=== PATIENT | female | born 1945 | race Caucasian/White ===

== ENCOUNTER 2016-11-19 09:48 | Emergency (ER) | payer OTHER ==
--- NOTE | ~2016-11-19 | CR126 ---
[facility] A Service of [facility] & [facility] RADIOLOGY TEXT RESULTS PATIENT: MYRTLE COOMBS LOCATION: [place] : 45 UNIT #: [id number] AGE: [address]: David Hudson SEX: F ORDER DR: [id number] [facility] [address]. [place], [place] [address] [id number] E MR#: [id number] Acc #: [id number] NAME: MYRTLE COOMBS : 1945 SEX: F STUDY DATE/TIME: 11/19/2016 11:19 UNIT: [facility] ROOM: STUDY DESCRIPTION: CR Foot Complete Min 3 View Lt Attending Physician: David Hudson Ordering Physician: David Hudson Primary Care Physician: Ashley Bae M.D. MEDICAL IMAGING REPORT This report is preliminary unless electronic signature is present EXAM Left foot. HISTORY Patient fell 1 week ago with pain and swelling. TECHNIQUE 3 views of the foot were obtained. FINDINGS. Extensive erosive degenerative change is seen at the first MTP joint with moderate degenerative changes at the interphalangeal joints. There is no evidence of an acute fracture and no radiodense foreign bodies are seen. No active cortical bone destruction is noted. IMPRESSION No acute findings. Chronic changes at the first MTP joint and to a lesser extent at the interphalangeal joints of the toes. Dictated by... Dominick Adan M.D. THIS IS AN ELECTRONICALLY VERIFIED REPORT Dominick Adan M.D. at 11/23/2016 6:27 PM SUNDAY/cathy TD: 11/19/2016 12:42 JOB #: [id number] MEDICAL IMAGING REPORT Page 1 of 1 COPY
--- NOTE | ~2016-11-19 | CR230 ---
[facility] A Service of [facility] & [facility] RADIOLOGY TEXT RESULTS PATIENT: MYRTLE COOMBS LOCATION: [facility] : 45 UNIT #: [id number] AGE: [address]: David Hudson SEX: F ORDER DR: [id number] [facility] [address]. [place], [place] [address] [id number] E MR#: [id number] Acc #: [id number] NAME: MYRTLE COOMBS : 1945 SEX: F STUDY DATE/TIME: 11/19/2016 11:16 UNIT: [facility] ROOM: STUDY DESCRIPTION: CR Shoulder Min 2 View Rt Attending Physician: David Hudson Ordering Physician: David Hudson Primary Care Physician: Ashley Bae M.D. MEDICAL IMAGING REPORT This report is preliminary unless electronic signature is present EXAM Right shoulder, 11/19/2016. HISTORY 71-year-old female with right shoulder pain status post fall 1 week ago. COMPARISON None FINDINGS 3 views of the right shoulder demonstrate bony demineralization. No evidence of acute fracture or dislocation. 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 Soft tissues are unremarkable. IMPRESSION 1. Osteopenia. No evidence of acute fracture or dislocation. 2. 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 Dictated by... Wilfredo Medina M.D. THIS IS AN ELECTRONICALLY VERIFIED REPORT Wilfredo Medina M.D. at 11/20/2016 8:56 AM SPENCER/cathy TD: 11/19/2016 12:28 JOB #: [id number] MEDICAL IMAGING REPORT Page 1 of 1 COPY
--- NOTE | ~2016-11-19 | CR142 ---
[facility] A Service of [facility] RADIOLOGY TEXT RESULTS PATIENT: MYRTLE COOMBS LOCATION: [facility] : 45 UNIT #: [id number] AGE: [address]: David Hudson SEX: F ORDER DR: [id number] [id number] [place], [place] [address] [id number] E MR#: [id number] Acc #: [id number] NAME: MYRTLE COOMBS : 1945 SEX: F STUDY DATE/TIME: 11/19/2016 11:13 UNIT: [facility] ROOM: STUDY DESCRIPTION: CR Hand Min 3 Views Rt Attending Physician: David Hudson Ordering Physician: David Hudson Primary Care Physician: Ashley Bae M.D. MEDICAL IMAGING REPORT This report is preliminary unless electronic signature is present EXAM Right hand, 11/19/2016. HISTORY 71-year-old female with right hand pain and swelling status post fall 1 week ago. COMPARISON None FINDINGS 3 views of the right hand demonstrate diffuse bony demineralization. Questionable nondisplaced avulsion fracture of the ulnar styloid. No other displaced fracture or dislocation identified. Advanced arthrosis throughout the interphalangeal joints and involving the first carpometacarpal joint. Soft tissues appear otherwise unremarkable. IMPRESSION 1. Osteopenia. Questionable nondisplaced avulsion fracture of the ulnar styloid. No other displaced fracture or dislocation. 2. 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 Dictated by... Wilfredo Medina M.D. THIS IS AN ELECTRONICALLY VERIFIED REPORT Wilfredo Medina M.D. at 11/20/2016 8:56 AM SPENCER/cathy TD: 11/19/2016 12:23 JOB #: [id number] [facility] A Service of [facility] RADIOLOGY TEXT RESULTS PATIENT: MYRTLE COOMBS LOCATION: [facility] : 45 UNIT #: [id number] AGE: [address]: David Hudson SEX: F ORDER DR: MEDICAL IMAGING REPORT Page 1 of 1 COPY
== END 2016-11-19 12:31 | disposition home or self-care (01) ==
LOC: CFTX 09:48 → CED 09:48 → CFTX 11:52
DX: S52.611A Displaced fracture of right ulna styloid process, initial encounter for closed fracture (principal); S46.911A Strain of unspecified muscle, fascia and tendon at shoulder and upper arm level, right arm, initial encounter; S90.32XA Contusion of left foot, initial encounter; I10 Essential (primary) hypertension; E10.9 Type 1 diabetes mellitus without complications; Z79.4 Long term (current) use of insulin; F32.9 Major depressive disorder, single episode, unspecified; Z88.2 Allergy status to sulfonamides; Z88.0 Allergy status to penicillin; Z88.1 Allergy status to other antibiotic agents; W01.198A Fall on same level from slipping, tripping and stumbling with subsequent striking against other object, initial encounter; Y92.009 Unspecified place in unspecified non-institutional (private) residence as the place of occurrence of the external cause
CPT/HCPCS: 29125; 73030; 73130; 73630; 99284

== ENCOUNTER → 2017-01-17 | Outpatient (CLI) | payer OTHER ==
--- NOTE | ~2017-01-17 | MY29 ---
[facility] A Service of [facility] & [facility] RADIOLOGY TEXT RESULTS PATIENT: MYRTLE COOMBS LOCATION: [facility] : 45 UNIT #: [id number] AGE: [address]: Ashley Bae MD SEX: F ORDER DR: [id number] [facility] [address]. [place], [place] [address] [id number] O MR#: [id number] Acc #: [id number] NAME: MYRTLE COOMBS : 1945 SEX: F STUDY DATE/TIME: 01/17/2017 10:06 UNIT: [facility] ROOM: STUDY DESCRIPTION: MY BEAU SCREENING W/ CAD BILAT Attending Physician: Ashley Bae M.D. Ordering Physician: Ashley Bae M.D. Primary Care Physician: Ashley Bae M.D. MEDICAL IMAGING REPORT This report is preliminary unless electronic signature is present EXAM Digital screening mammogram 01/17/2017 HISTORY 71-year-old woman, no risk elevation. Annual screening. COMPARISON STUDIES Comparison mammograms date to 11/13/2005 with most recent 11/09/2015. FINDINGS Digital imaging of each breast was completed utilizing screening protocol. Review includes FDA-approved CAD device. Breast parenchyma is partially fatty replaced and mildly heterogeneous. Subareolar duct prominence is noted bilaterally. Focal parenchymal dominance upper outer quadrant right breast is stable. I see no suspicious mass characteristics. There are no interval occurring microcalcifications and no suspicious architectural deformity. IMPRESSION Negative mammogram. Annual screening recommended. BIRADS: 1 Negative. Patients over the age of 40 are entered into a reminder system with target due date for the next mammogram. A result letter will also be sent to the patient. Dictated by... Andre Austin M.D. THIS IS AN ELECTRONICALLY VERIFIED REPORT [facility] A Service of [facility] & [facility] RADIOLOGY TEXT RESULTS PATIENT: MYRTLE COOMBS LOCATION: [facility] : 45 UNIT #: [id number] AGE: [address]: Ashley Bae MD SEX: F ORDER DR: Andre Austin M.D. at 01/17/2017 3:36 PM JBB/pcl TD: 01/17/2017 15:16 JOB #: [id number] MEDICAL IMAGING REPORT Page 1 of 1 COPY
--- NOTE | ~2017-01-17 | BD1 ---
[facility] A Service of [facility] & [facility] RADIOLOGY TEXT RESULTS PATIENT: MYRTLE COOMBS LOCATION: [facility] : 45 UNIT #: [id number] AGE: [address]: Ashley Bae MD SEX: F ORDER DR: [id number] [facility]. [place], [place] [address] [id number] O MR#: [id number] Acc #: [id number] NAME: MYRTLE COOMBS : 1945 SEX: F STUDY DATE/TIME: 01/17/2017 9:53 UNIT: [facility] ROOM: STUDY DESCRIPTION: BD Dexa Bone Dens 1+ Site Attending Physician: Ashley Bae M.D. Ordering Physician: Ashley Bae M.D. Primary Care Physician: Ashley Bae M.D. MEDICAL IMAGING REPORT This report is preliminary unless electronic signature is present EXAM DXA scan HISTORY Postmenopausal screening for osteoporosis. Patient with family history of osteoporosis. TECHNIQUE Bone density was assessed utilizing a Hologic bone densitometer. FINDINGS Total bone density within the lumbar spine was calculated at 0.851 G/cm2, with a T score -1.8. Total bone density within the proximal left femur was calculated at 0.700 g/cm2, with a T-score -2. When compared to the patient's study from 2011, there has been about a 10% decrease in bone density from the 2012 study within the left hip and about a 2% decrease in the lumbar spine. Lumbar spine bone density is decreased about 8% from baseline. IMPRESSION Bone density within the lumbar spine and proximal left femur is between 1 and 2.5 standard deviations below the mean and is compatible World Health Organization criteria for osteopenia. There has been a statistically significant decrease in bone density, particularly within the proximal left femur, when compared to the 2012 study of approximately 10%. Dictated by... Omar Lunsford M.D. THIS IS AN ELECTRONICALLY VERIFIED REPORT Omar Lunsford M.D. at 01/18/2017 7:28 AM KEYLA/kathy [facility] A Service of [facility] & [facility] RADIOLOGY TEXT RESULTS PATIENT: MYRTLE COOMBS LOCATION: [facility] #: [id number] : 45 UNIT #: [id number] AGE: [address]: Ashley Bae MD SEX: F ORDER DR: TD: 01/17/2017 18:26 JOB #: [id number] MEDICAL IMAGING REPORT Page 1 of 1 COPY
== END | disposition home or self-care (01) ==
LOC: CWCC 09:29
DX: Z12.31 Encounter for screening mammogram for malignant neoplasm of breast (principal); M81.0 Age-related osteoporosis without current pathological fracture; M85.89 Other specified disorders of bone density and structure, multiple sites
CPT/HCPCS: 77080; G0202

== ENCOUNTER 2017-03-21 18:56 | Emergency (ER) | payer OTHER ==
[~2017-03-21] VITALS: Ht 167.6 cm; Wt 67.6 kg
== END 2017-03-21 21:50 | disposition home or self-care (01) ==
LOC: CED 18:56 → CFTX 18:56
DX: S61.101A Unspecified open wound of right thumb with damage to nail, initial encounter (principal); E11.9 Type 2 diabetes mellitus without complications; I10 Essential (primary) hypertension; Z88.2 Allergy status to sulfonamides; Z88.0 Allergy status to penicillin; Z88.8 Allergy status to other drugs, medicaments and biological substances; W45.8XXA Other foreign body or object entering through skin, initial encounter; Y92.009 Unspecified place in unspecified non-institutional (private) residence as the place of occurrence of the external cause
CPT/HCPCS: 82947; 99283